=== PATIENT | male | born 1950 | race Caucasian/White ===

== ENCOUNTER → 2017-09-04 | Outpatient (CLI) | payer OTHER ==
[~2017-09-04] MED LIST: GADOBUTROL 10 MMOL/10 ML VIAL ONE
== END | disposition home or self-care (01) ==
LOC: CFH 15:23
PROVIDERS: ATTEND Nurse Practitioner Family
DX: D49.6 Neoplasm of unspecified behavior of brain (principal)
CPT/HCPCS: 70546; 70553; 82565; A9585

== ENCOUNTER 2019-05-07 16:12 | Outpatient (CLI) | payer MEDICARE | END 2019-05-07 23:59 | disposition home or self-care (01) | LOC: CFH 16:12 | PROVIDERS: ATTEND Internal Medicine | DX: M19.072 Primary osteoarthritis, left ankle and foot (principal); I10 Essential (primary) hypertension; E78.2 Mixed hyperlipidemia; E55.9 Vitamin D deficiency, unspecified; Z79.899 Other long term (current) drug therapy ==

== ENCOUNTER 2019-06-16 15:58 | Inpatient (IN) | payer MEDICARE ==
[~2019-06-16] VITALS: Ht 185.4 cm; Wt 93.3 kg
--- NOTE | 2019-06-16 17:21 | NUR ---
dispatcher service: Pt ambulatory to ED room 14 from [place] at this time
[2019-06-16 17:26] LABS: ALBUMIN 3.9 g/dL (3.4-5.0); ANION GAP 6 mmol/L (5-15); CALCIUM 9.5 mg/dL (8.5-10.1); CHLORIDE 104 mmol/L (98-107); CREATININE 1.06 mg/dL (0.7-1.3)
[2019-06-16] MEDS ORDERED: ATEN25TA PO (17:40)
[2019-06-16] MEDS ORDERED: LISI5TAB7 PO (17:40)
--- NOTE | 2019-06-16 17:49 | NUR ---
THIS IS A 69 YO MALE COMING IN FOR " I HAVE AN INFECTION IN MY LEFT TOE. DR. ANDERSON SENT ME HERE". LEFT MIDDLE TOE HAS REDNESS AND SWELLING, ON BOTTOM OF TOE SORE NOTED WITH DARK CENTER. PATIENT WAS ON PO ABX FOR HTE LAST 10 DAYS WITH NO IMPROVEMENT. PATIENT HAS NO OTHER COMPLAINTS. VSS, SPO2 AND BP MONITORING IN PLACE, PATIENT IS HYPERTENSIVE AT 172/100, PATIENT STATES "I DIDN'T TAKE MY BLOOD PRESSURE MEDS THIS MORNING". CALL LIGHT IN REACH
[2019-06-16 17:55] LABS: BASOPHILS # (AUTO) 0.06 x10^3/uL (0-0.1); BASOPHILS % (AUTO) 1 % (0-1); EOSINOPHILS # (AUTO) 0.68 x10^3/uL (0-0.4); EOSINOPHILS % (AUTO) 8 % (1-7); LYMPHOCYTES # (AUTO) 3.02 x10^3/uL (1-3.4); LYMPHOCYTES % (AUTO) 37 % (22-44); MD NO; MEAN CORPUSCULAR HEMOGLOBIN 29.4 pg (27.5-34.5); MEAN CORPUSCULAR HGB CONC 33.5 g/dL (33.2-36.2); MEAN CORPUSCULAR VOLUME 87.7 fL (81-97); MEAN PLATELET VOLUME 7.8 fL (7.4-10.4); MONOCYTES # (AUTO) 0.64 x10^3/uL (0.2-0.8); MONOCYTES % (AUTO) 8 % (2-9); NEUTROPHILS # (AUTO) 3.73 x10^3/uL (1.8-6.8); NEUTROPHILS % (AUTO) 46 % (42-75); PLATELET COUNT 300 x10^3/uL (130-400); RED BLOOD COUNT 5.51 x10^6/uL (4.38-5.82); RED CELL DISTRIBUTION WIDTH 13.7 % (9.4-14.8)
--- NOTE | 2019-06-16 18:52 | NUR ---
PIV PLACED, SECOND SET OF BLOOD CULTURES DRAWN
[2019-06-16 18:53] LABS: HCT (SEDRATE) 48.4 % (39.2-51.8)
[2019-06-16] MEDS ORDERED: AMPICILLIN/SULBACTAM 3 GM in SODIUM CHLORIDE 0.9% 100 ML IV ONE (19:00)
[2019-06-16] MEDS ORDERED: VANCOMYCIN PER PHARMACY MC PRN (19:00)
[2019-06-16] MEDS ORDERED: VANCOMYCIN 2,000 MG in SODIUM CHLORIDE 0.9% 500 ML IV ONE (19:03)
--- NOTE | 2019-06-16 19:08 | NUR ---
REPORT GIVEN TO OLIVA FLANAGAN. PLAN OF CARE DISCUSSED. PATIENT TO BE ADMITTED FOR IV ABX TREATMENT
[2019-06-16] MEDS ORDERED: HYDR1TAB16 PO (19:29)
[2019-06-16] MEDS ORDERED: PIRO20CA PO (19:37)
[2019-06-16] MEDS ORDERED: FLAX1CAP PO (19:37)
[2019-06-16] MEDS ORDERED: CYCL-259 PO (19:37)
[2019-06-16] MEDS ORDERED: MULT-257 PO (19:37)
[2019-06-16] MEDS ORDERED: DIPH25TA65 PO (19:37)
[2019-06-16] MEDS ORDERED: POTA99TA24 PO (19:37)
[2019-06-16] MEDS ORDERED: SERT25TA PO (19:37)
[2019-06-16] MEDS ORDERED: HCTZ PO (19:37)
[2019-06-16] MEDS ORDERED: CRAN500T2 PO (19:37)
[2019-06-16] MEDS ORDERED: LEVE100020 PO (19:37)
[2019-06-16] MEDS ORDERED: CYAN500L4 PO (19:37)
[2019-06-16] MEDS ORDERED: FOLI0.8C PO (19:37)
[2019-06-16] MEDS ORDERED: BENZ150C3 PO (19:37)
[2019-06-16] MEDS ORDERED: LAMO25TA PO (19:37)
[2019-06-16] MEDS ORDERED: CHOL400C11 PO (19:37)
--- NOTE | 2019-06-16 20:38 | NUR ---
Second antibiotic started. VS retaken. Pt's q6hr vicodin requested from MD for chronic headache/knee pain.
[2019-06-16] MEDS ORDERED: PLEASE ENTER ALLERGIES MC SCH (21:00)
--- NOTE | 2019-06-16 21:39 | NUR ---
Pt resting on gurney. Pt reports improvement after norco admin. Pt and thanked for patienced and updated that report has been called to floor RN.
--- NOTE | 2019-06-16 22:05 | NUR ---
Pt admitted. Pt alert, oriented and in NAD at time of admit.
[2019-06-16 22:26] VITALS: BP 185/99
[2019-06-17] VITALS (10 sets, daily range): BP systolic 142–204; BP diastolic 84–107
[2019-06-17] MEDS ORDERED: HYDR-3653 PO (00:48)
[2019-06-17] MEDS ORDERED: morphine SULFATE 10 MG/ML, 1ML IVPush PRN (01:30)
[2019-06-17] MEDS ORDERED: ONDANSETRON 2MG/ML, 2ML IVPush PRN (01:30)
[2019-06-17] MEDS ORDERED: ACETAMINOPHEN 325 MG TABLET PO PRN (01:30)
[2019-06-17] MEDS ORDERED: PLEASE ENTER DRUG ALLERGIES MC SCH (02:30)
[2019-06-17] MEDS: AMPICILLIN/SULBACTAM 1,500 MG in SODIUM CHLORIDE 0.9% 50 ML IV SCH ×4 (02:41→19:52)
[2019-06-17] MEDS ORDERED: DIPHENHYDRAMINE 50 MG CAPSULE PO PRN (03:00)
[2019-06-17] MEDS ORDERED: ATENOLOL 25 MG TABLET ONE (03:26)
[2019-06-17] MEDS ORDERED: HYDROCHLOROTHIAZIDE 12.5 MG CAPSULE ONE (03:26)
[2019-06-17] MEDS: LAMOTRIGINE MC SCH ×3 (03:30→19:30)
[2019-06-17] MEDS: SERTRALINE MC SCH ×3 (03:30→19:30)
[2019-06-17] MEDS: BENZONATATE MC SCH ×3 (03:30→19:30)
[2019-06-17] MEDS: ATENOLOL 25 MG TABLET PO SCH ×4 (03:36→19:52)
[2019-06-17] MEDS: HYDROCHLOROTHIAZIDE 12.5 MG CAPSULE PO SCH (03:36)
[2019-06-17] MEDS ORDERED: LAMO200T3 PO (03:49)
[2019-06-17] MEDS ORDERED: hydrALAzine 20 MG/ML, 1ML ONE (04:41)
[2019-06-17] MEDS ORDERED: hydrALAzine 20 MG/ML, 1ML IV ONE (05:00)
[2019-06-17] MEDS: CHOLECALCIFEROL 1,000 UNIT TABLET PO SCH (08:35)
[2019-06-17] MEDS: LEVETIRACETAM 500 MG TABLET PO SCH ×2 (08:35→19:52)
[2019-06-17] MEDS: LISINOPRIL 20 MG TABLET PO SCH ×2 (08:36→19:52)
[2019-06-17] MEDS: CYCLOBENZAPRINE 10 MG TABLET PO SCH ×2 (08:36→19:52)
[2019-06-17] MEDS: MULTIVITAMIN 1 TABLET PO SCH (08:37)
[2019-06-17] MEDS ORDERED: BENZONATATE 100 MG PO SCH (09:00)
[2019-06-17] MEDS ORDERED: PIROXICAM 10 MG CAPSULE PO SCH (09:00)
[2019-06-17] MEDS ORDERED: PIROXICAM 20 MG CAPSULE PO SCH (09:00)
[2019-06-17] MEDS ORDERED: LAMOTRIGINE 200 MG PO SCH (09:00)
[2019-06-17] MEDS ORDERED: SERTRALINE HCL 20 MG PO SCH (09:00)
[2019-06-17] MEDS ORDERED: ENALAPRILAT 1.25 MG/ML, 2ML ONE (10:28)
[2019-06-17] MEDS ORDERED: ENALAPRILAT 1.25 MG/ML, 1ML IV PRN (10:30)
[2019-06-17] MEDS ORDERED: BENZONATATE 100 MG CAPSULE PO PRN (17:30)
[2019-06-17] MEDS: LAMOTRIGINE 200 MG TABLET PO SCH (19:51)
[2019-06-18 00:22] VITALS: BP 136/91
[2019-06-18] MEDS: AMPICILLIN/SULBACTAM 1,500 MG in SODIUM CHLORIDE 0.9% 50 ML IV SCH ×4 (01:33→19:34)
[2019-06-18 05:33] LABS: BASOPHILS # (AUTO) 0.05 x10^3/uL (0-0.1); BASOPHILS % (AUTO) 1 % (0-1); EOSINOPHILS # (AUTO) 0.62 x10^3/uL (0-0.4); EOSINOPHILS % (AUTO) 8 % (1-7); LYMPHOCYTES % (AUTO) 35 % (22-44); MD NO; MEAN CORPUSCULAR HEMOGLOBIN 29.1 pg (27.5-34.5); MEAN CORPUSCULAR HGB CONC 33.5 g/dL (33.2-36.2); MEAN CORPUSCULAR VOLUME 86.7 fL (81-97); MEAN PLATELET VOLUME 7.8 fL (7.4-10.4); MONOCYTES % (AUTO) 9 % (2-9); NEUTROPHILS # (AUTO) 3.96 x10^3/uL (1.8-6.8); NEUTROPHILS % (AUTO) 48 % (42-75); PLATELET COUNT 265 x10^3/uL (130-400); RED BLOOD COUNT 5.36 x10^6/uL (4.38-5.82)
[2019-06-18 05:41] LABS: ANION GAP 5 mmol/L (5-15); CALCIUM 9.3 mg/dL (8.5-10.1); CHLORIDE 104 mmol/L (98-107); CREATININE 0.96 mg/dL (0.7-1.3)
[2019-06-18] MEDS: ATENOLOL 25 MG TABLET PO SCH ×4 (06:27→19:35)
[2019-06-18 06:55] VITALS: BP 131/84
[2019-06-18] MEDS: MULTIVITAMIN 1 TABLET PO SCH (08:54)
[2019-06-18] MEDS: SERTRALINE 50MG TABLET PO SCH (08:56)
[2019-06-18] MEDS: CYCLOBENZAPRINE 10 MG TABLET PO SCH ×2 (08:57→19:35)
[2019-06-18] MEDS: CHOLECALCIFEROL 1,000 UNIT TABLET PO SCH (08:57)
[2019-06-18] MEDS: HYDROCHLOROTHIAZIDE 12.5 MG CAPSULE PO SCH (08:57)
[2019-06-18] MEDS: LAMOTRIGINE 200 MG TABLET PO SCH ×2 (08:57→19:36)
[2019-06-18] MEDS: LEVETIRACETAM 500 MG TABLET PO SCH ×2 (08:57→19:36)
[2019-06-18] MEDS: LISINOPRIL 20 MG TABLET PO SCH ×2 (08:58→19:35)
[2019-06-18 12:27] VITALS: BP 143/83
[2019-06-18 18:39] VITALS: BP 136/83
[2019-06-19 00:47] VITALS: BP 147/90
[2019-06-19] MEDS: AMPICILLIN/SULBACTAM 1,500 MG in SODIUM CHLORIDE 0.9% 50 ML IV SCH ×4 (01:18→20:07)
[2019-06-19 05:22] LABS: BASOPHILS # (AUTO) 0.05 x10^3/uL (0-0.1); BASOPHILS % (AUTO) 1 % (0-1); EOSINOPHILS # (AUTO) 0.64 x10^3/uL (0-0.4); EOSINOPHILS % (AUTO) 7 % (1-7); LYMPHOCYTES % (AUTO) 33 % (22-44); MD NO; MEAN CORPUSCULAR HEMOGLOBIN 28.9 pg (27.5-34.5); MEAN CORPUSCULAR HGB CONC 33.3 g/dL (33.2-36.2); MEAN PLATELET VOLUME 7.7 fL (7.4-10.4); MONOCYTES # (AUTO) 0.65 x10^3/uL (0.2-0.8); MONOCYTES % (AUTO) 8 % (2-9); NEUTROPHILS # (AUTO) 4.45 x10^3/uL (1.8-6.8); NEUTROPHILS % (AUTO) 52 % (42-75); PLATELET COUNT 285 x10^3/uL (130-400); RED BLOOD COUNT 5.27 x10^6/uL (4.38-5.82); RED CELL DISTRIBUTION WIDTH 14.2 % (9.4-14.8)
[2019-06-19 05:25] LABS: CHLORIDE 106 mmol/L (98-107)
[2019-06-19 05:30] LABS: ANION GAP 7 mmol/L (5-15); CALCIUM 8.9 mg/dL (8.5-10.1); CREATININE 1.02 mg/dL (0.7-1.3)
[2019-06-19] MEDS: ATENOLOL 25 MG TABLET PO SCH ×3 (05:54→17:32)
[2019-06-19 07:58] VITALS: BP 149/81
[2019-06-19] MEDS: LEVETIRACETAM 500 MG TABLET PO SCH ×2 (09:10→20:07)
[2019-06-19] MEDS: SERTRALINE 50MG TABLET PO SCH (09:10)
[2019-06-19] MEDS: CHOLECALCIFEROL 1,000 UNIT TABLET PO SCH (09:11)
[2019-06-19] MEDS: MULTIVITAMIN 1 TABLET PO SCH (09:11)
[2019-06-19] MEDS: LISINOPRIL 20 MG TABLET PO SCH ×2 (09:11→20:07)
[2019-06-19] MEDS: CYCLOBENZAPRINE 10 MG TABLET PO SCH ×2 (09:11→20:07)
[2019-06-19] MEDS: LAMOTRIGINE 200 MG TABLET PO SCH ×2 (09:11→20:07)
[2019-06-19] MEDS: HYDROCHLOROTHIAZIDE 12.5 MG CAPSULE PO SCH (09:11)
[2019-06-19 13:52] VITALS: BP 123/78
[2019-06-19] MEDS: DAPTOMYCIN IVPB SCH (17:32)
[2019-06-19] MEDS: SODIUM CHLORIDE 0.9% IVPB SCH (17:32)
[2019-06-19 18:29] VITALS: BP 136/93
[2019-06-20 00:23] VITALS: BP 145/89
[2019-06-20] MEDS: AMPICILLIN/SULBACTAM 1,500 MG in SODIUM CHLORIDE 0.9% 50 ML IV SCH ×4 (01:42→19:30)
[2019-06-20] MEDS: ATENOLOL 25 MG TABLET PO SCH ×2 (06:09→17:35)
[2019-06-20 07:34] VITALS: BP 137/86
[2019-06-20] MEDS: SERTRALINE 50MG TABLET PO SCH (08:37)
[2019-06-20] MEDS: LAMOTRIGINE 200 MG TABLET PO SCH ×2 (08:37→20:45)
[2019-06-20] MEDS: LEVETIRACETAM 500 MG TABLET PO SCH ×2 (08:37→20:46)
[2019-06-20] MEDS: MULTIVITAMIN 1 TABLET PO SCH (08:38)
[2019-06-20] MEDS: CYCLOBENZAPRINE 10 MG TABLET PO SCH ×2 (08:38→20:46)
[2019-06-20] MEDS: LISINOPRIL 20 MG TABLET PO SCH ×2 (08:38→20:46)
[2019-06-20] MEDS: HYDROCHLOROTHIAZIDE 12.5 MG CAPSULE PO SCH (08:38)
[2019-06-20] MEDS: CHOLECALCIFEROL 1,000 UNIT TABLET PO SCH (08:38)
[2019-06-20 12:18] VITALS: BP 129/79
[2019-06-20] MEDS: DAPTOMYCIN IVPB SCH (17:30)
[2019-06-20] MEDS: SODIUM CHLORIDE 0.9% IVPB SCH (17:30)
[2019-06-20 18:27] VITALS: BP 144/87
[2019-06-21 00:47] VITALS: BP 151/94
[2019-06-21] MEDS: AMPICILLIN/SULBACTAM 1,500 MG in SODIUM CHLORIDE 0.9% 50 ML IV SCH ×4 (01:35→19:32)
[2019-06-21] MEDS: ATENOLOL 25 MG TABLET PO SCH ×2 (06:26→17:38)
[2019-06-21 08:47] VITALS: BP 164/93
[2019-06-21] MEDS: CYCLOBENZAPRINE 10 MG TABLET PO SCH ×2 (10:22→20:59)
[2019-06-21] MEDS: LAMOTRIGINE 200 MG TABLET PO SCH ×2 (10:22→20:59)
[2019-06-21] MEDS: LEVETIRACETAM 500 MG TABLET PO SCH ×2 (10:22→20:59)
[2019-06-21] MEDS: CHOLECALCIFEROL 1,000 UNIT TABLET PO SCH (10:22)
[2019-06-21] MEDS: MULTIVITAMIN 1 TABLET PO SCH (10:22)
[2019-06-21] MEDS: HYDROCHLOROTHIAZIDE 12.5 MG CAPSULE PO SCH (10:23)
[2019-06-21] MEDS: SERTRALINE 50MG TABLET PO SCH (10:23)
[2019-06-21] MEDS: LISINOPRIL 20 MG TABLET PO SCH ×2 (10:23→20:58)
[2019-06-21 13:39] VITALS: BP 152/96
[2019-06-21] MEDS: SODIUM CHLORIDE 0.9% IVPB SCH (14:48)
[2019-06-21] MEDS: DAPTOMYCIN IVPB SCH (14:48)
[2019-06-21 18:26] VITALS: BP 147/94
[2019-06-22 00:05] VITALS: BP 155/99
[2019-06-22] MEDS: AMPICILLIN/SULBACTAM 1,500 MG in SODIUM CHLORIDE 0.9% 50 ML IV SCH (01:39)
[2019-06-22] MEDS: ATENOLOL 25 MG TABLET PO SCH (05:37)
[2019-06-22 06:10] LABS: BASOPHILS # (AUTO) 0.03 x10^3/uL (0-0.1); BASOPHILS % (AUTO) 0 % (0-1); EOSINOPHILS # (AUTO) 0.85 x10^3/uL (0-0.4); EOSINOPHILS % (AUTO) 9 % (1-7); LYMPHOCYTES # (AUTO) 3.39 x10^3/uL (1-3.4); LYMPHOCYTES % (AUTO) 36 % (22-44); MD NO; MEAN CORPUSCULAR HGB CONC 33.5 g/dL (33.2-36.2); MEAN CORPUSCULAR VOLUME 86.7 fL (81-97); MEAN PLATELET VOLUME 7.9 fL (7.4-10.4); MONOCYTES # (AUTO) 0.64 x10^3/uL (0.2-0.8); MONOCYTES % (AUTO) 7 % (2-9); NEUTROPHILS % (AUTO) 48 % (42-75); PLATELET COUNT 265 x10^3/uL (130-400); RED BLOOD COUNT 5.25 x10^6/uL (4.38-5.82); RED CELL DISTRIBUTION WIDTH 14.4 % (9.4-14.8)
[2019-06-22 06:17] LABS: HCT (SEDRATE) 45.5 % (39.2-51.8)
[2019-06-22 06:22] LABS: ALANINE AMINOTRANSFERASE 25 U/L (12-78); ALBUMIN 3.6 g/dL (3.4-5.0); ANION GAP 7 mmol/L (5-15); C-REACTIVE PROTEIN, QUANT 0.29 mg/dL (0.02-0.49); CALCIUM 9.1 mg/dL (8.5-10.1); CHLORIDE 105 mmol/L (98-107); CREATININE 0.92 mg/dL (0.7-1.3)
[2019-06-22 06:24] LABS: ALKALINE PHOSPHATASE 90 U/L (45-117); BILIRUBIN,TOTAL 0.6 mg/dL (0.2-1.0); CREATINE KINASE, TOTAL 80 U/L (39-308); TOTAL PROTEIN 7.1 g/dL (6.4-8.2)
[2019-06-22 07:34] VITALS: BP 143/79
[2019-06-22] MEDS ORDERED: ERTAPENEM 1 GM in SODIUM CHLORIDE 0.9% 50 ML IV SCH (09:00)
[2019-06-22] MEDS: CYCLOBENZAPRINE 10 MG TABLET PO SCH (09:33)
[2019-06-22] MEDS: CHOLECALCIFEROL 1,000 UNIT TABLET PO SCH (09:33)
[2019-06-22] MEDS: LAMOTRIGINE 200 MG TABLET PO SCH (09:33)
[2019-06-22] MEDS: LISINOPRIL 20 MG TABLET PO SCH (09:33)
[2019-06-22] MEDS: MULTIVITAMIN 1 TABLET PO SCH (09:34)
[2019-06-22] MEDS: HYDROCHLOROTHIAZIDE 12.5 MG CAPSULE PO SCH (09:34)
[2019-06-22] MEDS: LEVETIRACETAM 500 MG TABLET PO SCH (09:34)
[2019-06-22] MEDS: SERTRALINE 50MG TABLET PO SCH (09:35)
[2019-06-22] MEDS ORDERED: POTASSIUM CHLORIDE 20 MEQ TAB.ER.PRT PO ONE (10:00)
[2019-06-22] MEDS: DAPTOMYCIN IVPB SCH (13:17)
[2019-06-22] MEDS: SODIUM CHLORIDE 0.9% IVPB SCH (13:17)
[2019-06-22 14:33] VITALS: BP 169/96
[2019-06-22] MEDS ORDERED: ERTA1VIA4 IV (14:47)
[2019-06-22] MEDS ORDERED: DAPT500V6 IV (14:47)
== END 2019-06-22 16:11 | disposition home or self-care (01) | DRG 540 ==
LOC: ED 19:21 → EDIP 19:22 → 3N 22:25
PROVIDERS: ADMIT Family Medicine; ATTEND Internal Medicine
PROC: 02HV33Z Insertion of Infusion Device into Superior Vena Cava, Percutaneous Approach (ICD-10-PCS; principal; 2019-06-20)
PROC: B5181ZA Fluoroscopy of Superior Vena Cava using Low Osmolar Contrast, Guidance (ICD-10-PCS; 2019-06-20)
PROC: B548ZZA Ultrasonography of Superior Vena Cava, Guidance (ICD-10-PCS; 2019-06-20)
DX: M86.172 Other acute osteomyelitis, left ankle and foot (principal); L03.116 Cellulitis of left lower limb; F11.20 Opioid dependence, uncomplicated; I69.351 Hemiplegia and hemiparesis following cerebral infarction affecting right dominant side; G40.909 Epilepsy, unspecified, not intractable, without status epilepticus; G62.9 Polyneuropathy, unspecified; I10 Essential (primary) hypertension; Q66.89 Other specified congenital deformities of feet; Z80.0 Family history of malignant neoplasm of digestive organs; Z83.3 Family history of diabetes mellitus
CPT/HCPCS: 36415; 36573; 80048; 80053; 82040; 82550; 83036; 83605; 85025; 85651; 86140; 87040; 87081; 96365; 96375; G0378; J0295; J0878; J1335; J3370; C1751; J0360; J7040

== ENCOUNTER 2019-10-17 23:16 | Emergency (ER) | payer MEDICARE ==
[~2019-10-17] VITALS: Ht 180.3 cm; Wt 95.9 kg
[~2019-10-17 23:16] MED LIST changes: +ATEN25TA PO; +BENZ150C3 PO; +CHOL400C11 PO; +CRAN500T2 PO; +CYAN500L4 PO; +CYCL-259 PO; +DAPT500V6 IV; +DIPH25TA65 PO; +ERTA1VIA4 IV; +FLAX1CAP PO; +FOLI0.8C PO; -GADOBUTROL 10 MMOL/10 ML VIAL ONE; +HCTZ PO; +HYDR-3653 PO; +HYDR1TAB16 PO; +LAMO200T3 PO; +LAMO25TA PO; +LEVE100020 PO; +LISI5TAB7 PO; +MULT-257 PO; +PIRO20CA PO; +POTA99TA24 PO; +SERT25TA PO
--- NOTE | 2019-10-18 00:28 | NUR ---
PT TAKEN FOR ULTRASOUND.
[2019-10-18 01:28] VITALS: BP 126/83
== END 2019-10-18 01:55 | disposition home or self-care (01) ==
LOC: ED 10-18 01:06
DX: S80.12XA Contusion of left lower leg, initial encounter (principal); W18.30XA Fall on same level, unspecified, initial encounter; Y93.89 Activity, other specified; Y92.89 Other specified places as the place of occurrence of the external cause; Y99.8 Other external cause status
CPT/HCPCS: 99284

== ENCOUNTER 2020-04-30 15:52 | Outpatient (CLI) | payer MEDICARE ==
[~2020-04-30 15:52] MED LIST changes: -CYCL-259 PO; +CYCL10TA2 PO
[2020-04-30 17:07] LABS: BASOPHILS % (AUTO) 1 % (0-1); EOSINOPHILS % (AUTO) 5 % (1-7); LYMPHOCYTES % (AUTO) 30 % (22-44); MD NO; MEAN CORPUSCULAR HEMOGLOBIN 29.2 pg (27.5-34.5); MEAN CORPUSCULAR HGB CONC 33.7 g/dL (33.2-36.2); MEAN PLATELET VOLUME 7.5 fL (7.4-10.4); MONOCYTES % (AUTO) 6 % (2-9); NEUTROPHILS % (AUTO) 58 % (42-75); PLATELET COUNT 396 x10^3/uL (130-400); RED BLOOD COUNT 5.89 x10^6/uL (4.38-5.82); RED CELL DISTRIBUTION WIDTH 13.7 % (9.4-14.8)
[2020-04-30 17:17] LABS: ALBUMIN 4.4 g/dL (3.4-5.0); CALCIUM 9.8 mg/dL (8.5-10.1); CHLORIDE 107 mmol/L (98-107)
[2020-04-30 17:30] LABS: ALANINE AMINOTRANSFERASE 28 U/L (12-78); ALKALINE PHOSPHATASE 109 U/L (45-117); ANION GAP 5 mmol/L (5-15); BILIRUBIN,TOTAL 0.8 mg/dL (0.2-1.0); CHOL/HDL RATIO 3.8; CHOLESTEROL, TOTAL 209 mg/dL (140-239); CREATININE 1.12 mg/dL (0.7-1.3); HDL CHOL % 26 % (26-37); HDL CHOLESTEROL (DIRECT) 55 mg/dL (40-60); LDL CHOLESTEROL,CALCULATED 129 mg/dL (54-169); LDL/HDL RATIO 2.3 (0.5-3.0); TOTAL PROTEIN 8.1 g/dL (6.4-8.2); TRIGLYCERIDES 124 mg/dL (50-200); VLDL CHOLESTEROL 25 mg/dL (0-25)
== END 2020-04-30 23:59 | disposition home or self-care (01) ==
LOC: LAB 15:52
PROVIDERS: ATTEND Internal Medicine
DX: Z12.5 Encounter for screening for malignant neoplasm of prostate (principal); Z12.11 Encounter for screening for malignant neoplasm of colon; L03.116 Cellulitis of left lower limb; E78.2 Mixed hyperlipidemia; I10 Essential (primary) hypertension; M86.9 Osteomyelitis, unspecified; I61.9 Nontraumatic intracerebral hemorrhage, unspecified; G62.9 Polyneuropathy, unspecified; G47.30 Sleep apnea, unspecified; R01.1 Cardiac murmur, unspecified; R79.9 Abnormal finding of blood chemistry, unspecified; F06.31 Mood disorder due to known physiological condition with depressive features; Z78.9 Other specified health status
CPT/HCPCS: 36415; 80053; 80061; 84153; 84443; 85025; G0103